=== PATIENT | male | born 1960 | race Caucasian/White ===

== ENCOUNTER 2018-04-22 16:27 | Emergency (ER) | payer MEDICARE ==
[~2018-04-22] VITALS: Ht 182.9 cm; Wt 120.5 kg
[2018-04-22 16:41] VITALS: Ht 182.9 cm; Wt 120.5 kg
[2018-04-22] MEDS ORDERED: XANAX2 MG PO (16:44)
[2018-04-22] MEDS ORDERED: SEROQUEL400 MG PO (16:44)
[2018-04-22] MEDS ORDERED: NEURONTIN800 MG PO (16:44)
[2018-04-22] MEDS ORDERED: CYMBALTA60 MG PO (16:45)
[2018-04-22] MEDS ORDERED: HYDROCODONE-APA1 TAB PO (16:46)
[2018-04-22] MEDS ORDERED: COREG12.5 MG PO (16:47)
[2018-04-22 16:58] LABS: BASOPHILS 0.7 % (0-2); EOSINOPHILS 5.3 % (0-7); HEMATOCRIT 42.1 % (42.0-54.0); HEMOGLOBIN 14.2 g/dL (13.5-17.5); IMMATURE GRANULOCYTES 0.2 % (0-5); LYMPHOCYTES 35.4 % (15-50); MCH 29.1 pg (26.0-34.0); MCHC 33.7 g/dL (31.0-37.0); MCV 86.3 fL (80.0-100.0); MONOCYTES 13.1 % (2-11); NEUTROPHILS 45.3 % (40-80); PLATELET COUNT 177 10x3/uL (130-400); RBC 4.88 10x6/uL (4.20-6.10); RDW 13.4 % (11.5-14.5); WBC 5.8 10x3/uL (4.8-10.8)
[2018-04-22 17:30] LABS: ALKALINE PHOSPHATASE 72 U/L (46-116); ALT (SGPT) 28 U/L (10-68); BILIRUBIN - TOTAL 0.54 mg/dL (0.2-1.3); CALC OSMOLALITY 279 mosm/kg (275-300); CALCIUM 8.3 mg/dL (8.5-10.1); CARBON DIOXIDE 31.1 mmol/L (21.0-32.0); CHLORIDE - SERUM 107 mmol/L (98-107); CREATININE - SERUM 0.9 mg/dL (0.6-1.3); GLUCOSE 95 mg/dL (74-106); POTASSIUM - SERUM 3.8 mmol/L (3.5-5.1); PROTEIN - SERUM 6.7 g/dL (6.4-8.2); SODIUM 141 mmol/L (136-145); UREA NITROGEN 9 mg/dL (7-18); eGFR NON AFRICAN AMERICAN > 90 mL/min (90-120)
[2018-04-22 17:41] LABS: CKMB 0.7 U/L (0.0-3.6); CREATINE KINASE 64 UL (21-232); TROPONIN-I < 0.017 ng/mL (0.000-0.060)
[2018-04-22 18:59] VITALS: BP 126/68
== END 2018-04-22 18:58 | disposition home or self-care (01) ==
LOC: D.ER 16:27
PROVIDERS: Emergency Medicine
DX: R07.9 Chest pain, unspecified (principal); J90 Pleural effusion, not elsewhere classified

== ENCOUNTER → 2018-09-30 13:03 | Outpatient (CLI) | payer MEDICARE ==
[2018-04-22 16:41] VITALS: BMI 36.0
[~2018-09-30 13:03] MED LIST: COREG12.5 MG PO; CYMBALTA60 MG PO; HYDROCODONE-APA1 TAB PO; NEURONTIN800 MG PO; SEROQUEL400 MG PO; XANAX2 MG PO
== END | disposition home or self-care (01) ==
LOC: D.MRI 13:03
DX: G44.89 Other headache syndrome (principal); G51.0 Bell's palsy

== ENCOUNTER → 2018-10-13 08:28 | Outpatient (CLI) | payer MEDICARE ==
[2018-04-22 16:41] VITALS: BMI 36.0
== END | disposition home or self-care (01) ==
LOC: D.MRI 08:28
DX: G93.9 Disorder of brain, unspecified (principal)